=== PATIENT | male | born 1990 | race Caucasian/White ===

== ENCOUNTER 2021-11-20 03:16 | Inpatient (IN) | payer OTHER ==
[~2021-11-20] VITALS: Ht 177.8 cm; Wt 101.2 kg
[2021-11-20] MEDS ORDERED: NALOXONE 2 MG/2 ML SYRINGE ONE (03:23)
[2021-11-20] MEDS ORDERED: ONDANSETRON 4 MG/2 ML VIAL ONE (03:23)
[2021-11-20] MEDS ORDERED: ONDANSETRON 4 MG/2 ML VIAL IV ONE (03:30)
[2021-11-20] MEDS ORDERED: IV NS 1000 ML 1,000 ML IV ONE (03:30)
[2021-11-20] MEDS ORDERED: NALOXONE HCL 0.4 MG/ML AMPUL IV ONE (03:30)
[2021-11-20] MEDS ORDERED: NALO4SPR BNOSTRILS (03:39)
[2021-11-20 03:42] LABS: HEMATOCRIT 43.3 % (36.7-47.1); MEAN CORPUSCULAR HEMOGLOBIN 27.4 uug (23.8-33.4); MEAN CORPUSCULAR VOLUME 80.6 fL (73.0-96.2); PLATELET COUNT (AUTO) 214 K/uL (152-348)
[2021-11-20 03:49] LABS: CARBON DIOXIDE 32 mmol/L (21-32); CHLORIDE 99 mmol/L (98-107); CREATININE 1.2 mg/dL (0.6-1.3); GLUCOSE 120 mg/dL (74-106); POTASSIUM 4.2 mmol/L (3.5-5.1); UREA NITROGEN, BLOOD 14 mg/dL (7-18)
[2021-11-20 03:53] LABS: ETHANOL < 3 MG/DL (0-0)
[2021-11-20 04:00] LABS: ALANINE AMINOTRANSFERASE 16 U/L (16-63); ALKALINE PHOSPHATASE 64 U/L (50-136); ASPARTATE AMINOTRANSFERASE 23 U/L (15-37); BILIRUBIN,TOTAL 0.6 mg/dL (0.2-1.0); TOTAL PROTEIN, SERUM 7.6 g/dL (6.4-8.2)
[2021-11-20 04:13] LABS: ACETAMINOPHEN < 2.0 ug/mL (10-30)
[2021-11-20] MEDS ORDERED: FUROSEMIDE 20 MG/2 ML VIAL IV ONE (04:30)
[2021-11-20] MEDS ORDERED: FUROSEMIDE 20 MG/2 ML VIAL ONE (04:32)
--- NOTE | 2021-11-20 04:48 | NUR ---
Paged Epic panel corrosion engineer, waiting for Dr Mccullough to call back.
--- NOTE | 2021-11-20 04:59 | NUR ---
Dr Mccullough called back who accept patient to [facility]) floor.
[2021-11-20] MEDS ORDERED: ACETAMINOPHEN 325 MG TABLET PO PRN (05:00)
[2021-11-20] MEDS ORDERED: MORPHINE SULFATE 2 MG/1 ML DISP.SYRIN IV PRN (05:00)
[2021-11-20] MEDS ORDERED: NALOXONE HCL 0.4 MG/ML AMPUL IV PRN (05:00)
[2021-11-20] MEDS ORDERED: ONDANSETRON 4 MG/2 ML VIAL IV PRN (05:00)
[2021-11-20 05:12] LABS: *BILIRUBIN,URIN NEGATIVE (NEGATIVE); *BLOOD, URINE NEGATIVE (NEGATIVE); *CLARITY,URINE CLEAR (CLEAR); *COLOR,URINE YELLOW (YELLOW); *KETONES,URINE NEGATIVE (NEGATIVE); *UROBILINOGEN,URINE 0.2 E.U./dl (NORMAL); LEUKOCYTE ESTERASE ,URINE NEGATIVE (NEGATIVE); NITRITE, URINE NEGATIVE (NEGATIVE); PH,URINE 5.5 (5.0-8.0); UGLUCOSE TRACE (NEGATIVE)
[2021-11-20 05:14] LABS: *AMPHETAMINE, URINE NEGATIVE (NEGATIVE); *CANNABINOID, URINE POSITIVE (NEGATIVE); *COCCAINE, URINE NEGATIVE (NEGATIVE); *OPIATE, URINE POSITIVE (NEGATIVE); *PHENCYCLIDINE SCREEN,URINE NEGATIVE (NEGATIVE)
[2021-11-20] MEDS ORDERED: FUROSEMIDE 40 MG/4 ML VIAL ONE (08:29)
[2021-11-20] MEDS ORDERED: HEPARIN SODIUM,PORCINE 5,000 UNITS/ML VIAL ONE (08:29)
[2021-11-20] MEDS: HEPARIN SODIUM,PORCINE 5,000 UNITS/ML VIAL SQ SCH ×2 (08:32→21:37)
[2021-11-20] MEDS ORDERED: FUROSEMIDE 40 MG/4 ML VIAL IV SCH (09:00)
[2021-11-20] MEDS ORDERED: PIPERACILLIN SODIUM/TAZOBACTAM 3.375 G in IV DEXTROSE 5% 50 ML IV ONE (10:13)
[2021-11-20] MEDS ORDERED: PIPERACILLIN/TAZOBACTAM/D5W 50 ML IV ONE (10:48)
--- NOTE | 2021-11-20 11:40 | NUR ---
Roxana finished infusion.
--- NOTE | 2021-11-20 18:55 | NUR ---
Pharmacy just brought 2 doses of Zosyn for pt.
--- NOTE | 2021-11-20 20:19 | NUR ---
Transfered to 3rd floor via gurny with no distress noted by nursing supervisor pastry.
--- NOTE | 2021-11-20 20:30 | NUR ---
patient received from ER DX:Percocet overdose came via wheelchair . patient AAOX4.MAEX4.patient on Ventimask at 10 liters saturation 95% rr 19 no respiratory distress noted breathing even and unlabored breath sounds all throughout diminished.ORIENTED with call light and oriented with heart monitor .
[2021-11-20 20:50] VITALS: BP 113/63
--- NOTE | 2021-11-20 20:50 | NUR ---
called respiratory therapist to provide pulse oximetry machine, spoked with Fco Warren
--- NOTE | 2021-11-20 21:15 | NUR ---
patient requested for some food to eat he said his hungry and haven't eaten anything given applejuice and jello . hob up and advised patient to eat slowly and to take his time , patient brother Andre at b/s.
[2021-11-20] MEDS: FUROSEMIDE 40 MG/4 ML VIAL IV SCH (21:35)
[2021-11-20] MEDS: PIPERACILLIN SODIUM/TAZOBACTAM 3.375 G in IV DEXTROSE 5% 100 ML IV SCH (21:38)
--- NOTE | 2021-11-20 21:38 | NUR ---
due antibiotic given via the right ac no. 20 H/L flushed H/L patient .
[2021-11-21] VITALS: BP 113/70
[2021-11-21] MEDS: PIPERACILLIN SODIUM/TAZOBACTAM 3.375 G in IV DEXTROSE 5% 100 ML IV SCH ×3 (02:54→17:55)
[2021-11-21 04:00] VITALS: BP 98/64
[2021-11-21 05:53] LABS: HEMATOCRIT 40.2 % (36.7-47.1); MEAN CORPUSCULAR HEMOGLOBIN 27.5 uug (23.8-33.4); MEAN CORPUSCULAR VOLUME 80.1 fL (73.0-96.2); PLATELET COUNT (AUTO) 170 K/uL (152-348)
[2021-11-21 06:09] LABS: BILIRUBIN,TOTAL 1.1 mg/dL (0.2-1.0); CREATININE 0.9 mg/dL (0.6-1.3); PHOSPHOROUS 1.7 mg/dL (2.5-4.9); POTASSIUM 3.7 mmol/L (3.5-5.1); TOTAL PROTEIN, SERUM 7.7 g/dL (6.4-8.2)
--- NOTE | 2021-11-21 07:54 | NUR ---
Awake, alert, oriented x 4. O2 at 5L/NC, humidified with O2 sat of 92%, increased to 6L/NC with O2 sat of 94%.
[2021-11-21 08:00] VITALS: BP 118/71
[2021-11-21] MEDS: FUROSEMIDE 40 MG/4 ML VIAL IV SCH ×2 (08:42→20:13)
[2021-11-21] MEDS: HEPARIN SODIUM,PORCINE 5,000 UNITS/ML VIAL SQ SCH ×2 (08:44→20:14)
--- NOTE | 2021-11-21 08:45 | NUR ---
K3.7, Phos 1.7, KPhos IV started as ordered.
[2021-11-21] MEDS ORDERED: POTASSIUM PHOSPHATE MM 15 MMOL in IV NORMAL SALINE 250 ML IV ONE (09:00)
--- NOTE | 2021-11-21 10:00 | NUR ---
Titrating O2 but not able to sustain 94% above, placed back on O2 at 6L/NC
[2021-11-21 11:55] VITALS: BP 121/68
--- NOTE | 2021-11-21 12:00 | NUR ---
Titrated down to 5L/NC with O2 sat of 97%
--- NOTE | 2021-11-21 13:17 | NUR ---
Social work consult was requested for a patient on [facility] for substance abuse resources. Patient is 31-year-old male admitted to the hospital for pulmonary edema. Patient is alert and oriented X4. Patient appears lethargic. Patient presents with euthymic mood and full range affect. Patient states is primary call or contact centre team leader is his brother, Andre Hernandez ([phone]) who lives close by, and they have a good relationship. Patient states that he lives in a two-story house at [address] [place] [address] with his mother, Breonna and his father, Artemio. Patient states he has a good relationship with his parents. Patient states that he is currently working at [employer] for a couple of months. Patient states he is not currently driving. Patient states that he has a history of substance abuse. The toxicology screening is positive for opiates, benzodiazepines and cannabinoids. Patient states he previously went to inpatient treatment for a month. Patient states he last took pills was Saturday. SW offered patient substance abuse resources and patient refused. SW placed the resources in the patients chart. Patient denies history of psychiatric diagnosis. SW offered patient mental health resources and patient refused. SW placed the resources in the patient's chart. Patient denies suicidal or homicidal ideation. The discharge plan is for his brother, Andre ([phone]) to pick him up and to bring him home to [address] [place] [address].
--- NOTE | 2021-11-21 15:08 | NUR ---
Sleeping most of the time between care
[2021-11-21 15:55] VITALS: BP 103/64
--- NOTE | 2021-11-21 17:57 | NUR ---
With poor appetite. O2 at 5L/NC. With adequate urine output.
--- NOTE | 2021-11-21 19:30 | NUR ---
Received patient lying in bed. Brother Andre at bedside. AAOx4. In no acute distress. Denies any pain or SOB at this time. On O2 at 5LPM via NC in place. O2 sat at 97%. NSR on tele with HR of 90/min. IV site on right hand intact and patent. IV antibiotic infusing. Needs assessed and attended to. Safety measure initiated and call light within reached.
[2021-11-21 20:00] VITALS: BP 128/82
--- NOTE | 2021-11-21 22:08 | NUR ---
With temp of 99.9 orally. Tylenol 650mg PO given and cooling measure provided. Continue to monitor.
[2021-11-22] VITALS: BP 110/60
[2021-11-22] MEDS: PIPERACILLIN SODIUM/TAZOBACTAM 3.375 G in IV DEXTROSE 5% 100 ML IV SCH ×2 (01:09→09:10)
[2021-11-22 04:00] VITALS: BP 110/67
--- NOTE | 2021-11-22 05:21 | NUR ---
Patient slept well. Afebrile. Latest temp. 97.8 orally. Denies any pain or SOB. Remains on O2 at 5LPM via NC. O2 sat at 99%. IV site on right hand intact and patent. No adverse reaction noted from IV antibiotics. NSR on tele with Hr of 71/min. Needs attended to and met. Safety measure maintained and call light within reached.
[2021-11-22 06:53] LABS: HEMATOCRIT 40.9 % (36.7-47.1); MEAN CORPUSCULAR HEMOGLOBIN 27.7 uug (23.8-33.4); MEAN CORPUSCULAR VOLUME 78.4 fL (73.0-96.2); PLATELET COUNT (AUTO) 194 K/uL (152-348)
[2021-11-22 07:26] LABS: CARBON DIOXIDE 35 mmol/L (21-32); CHLORIDE 94 mmol/L (98-107); CHOLESTEROL 193 mg/dL (<200); CREATININE 0.7 mg/dL (0.6-1.3); GLUCOSE 102 mg/dL (74-106); HDL CHOLESTEROL 32 mg/dL (40-60); MAGNESIUM 2.1 mg/dL (1.8-2.4); PHOSPHOROUS 2.9 mg/dL (2.5-4.9); TRIGLYCERIDES 178 MG/DL (30-150); UREA NITROGEN, BLOOD 13 mg/dL (7-18)
[2021-11-22 07:59] LABS: POTASSIUM 2.8 mmol/L (3.5-5.1)
[2021-11-22] MEDS ORDERED: ALBUTEROL SULFATE 2.5 MG/ 0.5 ML NEBU NEB PRN (08:45)
[2021-11-22] MEDS ORDERED: POTASSIUM CHLORIDE 20 MEQ TAB.PRT.SR PO ONE (09:00)
[2021-11-22 11:46] VITALS: BP 113/60
[2021-11-22] MEDS: POTASSIUM CHLORIDE 10 MEQ, LIDOCAINE-MPF 1% 1 ML in IV DEXTROSE 5% 100 ML IV SCH ×2 (12:54→14:00)
[2021-11-22] MEDS ORDERED: AMOX-430 PO (14:15)
[2021-11-22] MEDS ORDERED: ATOR10TA PO (14:15)
--- NOTE | 2021-11-22 15:03 | NUR ---
Patient to be discharged home. Titrating patient's oxygen to monitor patient's saturation.
[2021-11-22 15:59] VITALS: BP 129/79
--- NOTE | 2021-11-22 18:01 | NUR ---
Patient discharged from unit. IV site removed. ID wrist band removed. Discharge education provided. Patient seen by Dr. Sparks before discharge.
[2021-11-22] MEDS ORDERED: ATORVASTATIN 10 MG TABLET PO SCH (21:00)
== END 2021-11-22 18:03 | disposition home or self-care (01) | DRG 917 ==
LOC: ER 03:25 → TRANSITION 06:51 → TELE-TD3 20:11 → TELE3 11-21 17:15 → MEDSURG3 11-22 09:54
PROVIDERS: ADMIT Internal Medicine; ATTEND Internal Medicine
DX: T40.2X1A Poisoning by other opioids, accidental (unintentional), initial encounter (principal); A41.9 Sepsis, unspecified organism; J69.0 Pneumonitis due to inhalation of food and vomit; J96.01 Acute respiratory failure with hypoxia; G92.8 Other toxic encephalopathy; F11.20 Opioid dependence, uncomplicated; J70.4 Drug-induced interstitial lung disorders, unspecified; E66.9 Obesity, unspecified; E78.5 Hyperlipidemia, unspecified; E87.6 Hypokalemia; Z68.32 Body mass index [BMI] 32.0-32.9, adult; F19.10 Other psychoactive substance abuse, uncomplicated; Z20.822 Contact with and (suspected) exposure to COVID-19
CPT/HCPCS: 36415; 71045; 83605; 83735; 84100; 85025; 93005; 93307; 94760; A4663; G0378; G0480; J1644; J1940; J2001; J2310; J2405; J2543; J3480; J3490; J7040

== ENCOUNTER 2022-11-06 08:06 | Emergency (ER) | payer OTHER ==
[~2022-11-06] VITALS: Ht 180.3 cm; Wt 97.5 kg
[~2022-11-06 08:06] MED LIST: AMOX-430 PO; ATOR10TA PO
[2022-11-06] MEDS ORDERED: BUPR1FIL SL (08:47)
[2022-11-06 08:56] LABS: HEMATOCRIT 40.5 % (36.7-47.1); MEAN CORPUSCULAR HEMOGLOBIN 26.8 uug (23.8-33.4); MEAN CORPUSCULAR VOLUME 79.5 fL (73.0-96.2); PLATELET COUNT (AUTO) 189 K/uL (152-348)
[2022-11-06] MEDS ORDERED: IV NORMAL SALINE 1000 ML BAG IV ONE (09:15)
[2022-11-06 09:27] LABS: ALANINE AMINOTRANSFERASE 23 U/L (16-63); ALKALINE PHOSPHATASE 57 U/L (50-136); ASPARTATE AMINOTRANSFERASE 12 U/L (15-37); BILIRUBIN,DIRECT 0.1 mg/dL (0.0-0.2); BILIRUBIN,TOTAL 0.7 mg/dL (0.2-1.0); CARBON DIOXIDE 26 mmol/L (21-32); CHLORIDE 102 mmol/L (98-107); CREATININE 0.9 mg/dL (0.6-1.3); POTASSIUM 3.1 mmol/L (3.5-5.1); TOTAL PROTEIN, SERUM 7.5 g/dL (6.4-8.2); UREA NITROGEN, BLOOD 11 mg/dL (7-18)
[2022-11-06 09:33] LABS: ACETAMINOPHEN < 2.0 ug/mL (10-30)
[2022-11-06 09:58] LABS: *BILIRUBIN,URIN NEGATIVE (NEGATIVE); *BLOOD, URINE NEGATIVE (NEGATIVE); *CLARITY,URINE CLEAR (CLEAR); *COLOR,URINE YELLOW (YELLOW); *KETONES,URINE TRACE (NEGATIVE); *UROBILINOGEN,URINE 0.2 E.U./dl (NORMAL); LEUKOCYTE ESTERASE ,URINE NEGATIVE (NEGATIVE); NITRITE, URINE NEGATIVE (NEGATIVE); UGLUCOSE NEGATIVE (NEGATIVE)
[2022-11-06 10:16] LABS: *AMPHETAMINE, URINE NEGATIVE (NEGATIVE); *CANNABINOID, URINE POSITIVE (NEGATIVE); *COCCAINE, URINE NEGATIVE (NEGATIVE); *PHENCYCLIDINE SCREEN,URINE NEGATIVE (NEGATIVE)
[2022-11-06 11:40] VITALS: BP 140/88; O2SAT 99
== END 2022-11-06 11:41 | disposition home or self-care (01) ==
LOC: ER 08:06
DX: T39.1X1A Poisoning by 4-Aminophenol derivatives, accidental (unintentional), initial encounter (principal); F32.9 Major depressive disorder, single episode, unspecified; E87.6 Hypokalemia; E78.5 Hyperlipidemia, unspecified; Z79.2 Long term (current) use of antibiotics; Z79.899 Other long term (current) drug therapy; Y92.89 Other specified places as the place of occurrence of the external cause
CPT/HCPCS: 36415; 85025; A4663; G0480; J7040

== ENCOUNTER 2024-12-15 16:48 | Emergency (ER) | payer MEDICAID, OTHER ==
[~2024-12-15] VITALS: Ht 180.3 cm; Wt 90.7 kg
[~2024-12-15 16:48] MED LIST changes: -AMOX-430 PO; -ATOR10TA PO; +BUPR1FIL SL
[2024-12-15 16:53] VITALS: BP 138/85
[2024-12-15 18:11] LABS: PLATELET COUNT (AUTO) 195 K/uL (152-348); RED BLOOD CELL COUNT(AUTO) 4.97 MIL/uL (4.06-5.63); RED CELL DISTRIBUTION WIDTH 14.1 % (12.1-16.2); WHITE BLOOD COUNT (AUTO) 4.6 K/uL (3.6-10.2)
[2024-12-15 18:22] LABS: CREATININE 0.7 mg/dL (0.6-1.3); SODIUM SERUM 142 mmol/L (136-145); UREA NITROGEN, BLOOD 6 mg/dL (7-18)
[2024-12-15 18:26] LABS: CREATINE KINASE, TOTAL 70.0 U/L (39-308)
[2024-12-15 18:27] LABS: *MONOTEST NEGATIVE (NEGATIVE)
[2024-12-15 18:28] LABS: ASPARTATE AMINOTRANSFERASE < 5 U/L (15-37); TOTAL PROTEIN, SERUM 7.5 g/dL (6.4-8.2)
[2024-12-15 19:00] VITALS: BP 130/79; TEMP 97.7; O2SAT 98
== END 2024-12-15 19:01 | disposition home or self-care (01) ==
LOC: ER 16:59
DX: R53.1 Weakness (principal); R07.9 Chest pain, unspecified; R53.83 Other fatigue; E78.5 Hyperlipidemia, unspecified; F11.20 Opioid dependence, uncomplicated; F41.9 Anxiety disorder, unspecified; Z86.69 Personal history of other diseases of the nervous system and sense organs; Z87.09 Personal history of other diseases of the respiratory system; Z86.59 Personal history of other mental and behavioral disorders
CPT/HCPCS: 36415; 70030-TC; 71045; 84443; 84484; 85025; 85651; 85730; 86308; A4606; A4663

== ENCOUNTER 2024-12-16 23:53 | Emergency (ER) | payer MEDICAID ==
[~2024-12-16] VITALS: Ht 180.3 cm; Wt 88.5 kg
[2024-12-17] MEDS ORDERED: ONDANSETRON 4 MG/2 ML VIAL ONE (00:24)
[2024-12-17] MEDS ORDERED: IOHEXOL 300MG/ML 100 ML INFUS..BTL ONE (00:28)
[2024-12-17] MEDS ORDERED: ONDA4TAB11 PO (00:28)
[2024-12-17] MEDS ORDERED: SWABABLE VALVE TRANSFER SET EA MC ONE ×2 (00:28→00:29)
[2024-12-17] MEDS ORDERED: IV NORMAL SALINE 250 ML IV ONE (00:28)
[2024-12-17 00:31] LABS: *BILIRUBIN,URIN NEGATIVE (NEGATIVE); *BLOOD, URINE NEGATIVE (NEGATIVE); *CLARITY,URINE SLIGHTLY CLOUDY (CLEAR); *COLOR,URINE YELLOW (YELLOW); *KETONES,URINE TRACE (NEGATIVE); *PROTEIN,URINE NEGATIVE (NEGATIVE); *UROBILINOGEN,URINE 0.2 E.U./dl (NORMAL); LEUKOCYTE ESTERASE ,URINE NEGATIVE (NEGATIVE); NITRITE, URINE NEGATIVE (NEGATIVE); PLATELET COUNT (AUTO) 214 K/uL (152-348); RED BLOOD CELL COUNT(AUTO) 5.09 MIL/uL (4.06-5.63); RED CELL DISTRIBUTION WIDTH 14.2 % (12.1-16.2); UGLUCOSE NEGATIVE (NEGATIVE); WHITE BLOOD COUNT (AUTO) 8.4 K/uL (3.6-10.2)
[2024-12-17 00:39] LABS: CREATININE 0.7 mg/dL (0.6-1.3); SODIUM SERUM 142 mmol/L (136-145); UREA NITROGEN, BLOOD 9 mg/dL (7-18)
[2024-12-17 00:40] LABS: URINE AMORPHOUS PHOSPHATES MANY /HPF
[2024-12-17] MEDS: ONDANSETRON 4 MG/2 ML VIAL IV ONE (00:43)
[2024-12-17 00:45] LABS: ASPARTATE AMINOTRANSFERASE < 5 U/L (15-37); TOTAL PROTEIN, SERUM 8.0 g/dL (6.4-8.2)
[2024-12-17 00:46] LABS: COARSE GRANULAR CASTS,URINE 0-3 /LPF
[2024-12-17 01:18] VITALS: BP 123/83
[2024-12-17 01:44] VITALS: BP 123/83; O2SAT 99
== END 2024-12-17 01:44 | disposition home or self-care (01) ==
LOC: ER 23:58
DX: R14.0 Abdominal distension (gaseous) (principal); R53.1 Weakness; R63.4 Abnormal weight loss; E78.5 Hyperlipidemia, unspecified; I51.9 Heart disease, unspecified; K76.0 Fatty (change of) liver, not elsewhere classified; Z90.49 Acquired absence of other specified parts of digestive tract
CPT/HCPCS: 99285; 74177; 96374; 80076; 80048; 81001; 83690; 85025; 36415; J2405; Q9967; A4606; A4663